=== PATIENT | female | born 1975 | race American Indian/Alaskan Native ===

== ENCOUNTER 2020-09-10 13:54 | Emergency (ER) | payer SELFPAY ==
[2020-09-10] MEDS ORDERED: ALBUTEROL 2.5 MG/3 ML NEBU IH ONE (14:29)
[2020-09-10] MEDS ORDERED: IPRATROPIUM 0.02% NEBU 2.5 ML IH ONE (14:29)
--- NOTE | 2020-09-10 14:33 | Emergency Department Report ---
ED Asthma HPI - General Chief Complaint: Adult Asthma Stated Complaint: KATIE Time Seen by Provider: 09/10/20 14:23 Source: patient, EMS Mode of arrival: Stretcher Limitations: No Limitations - History of Present Illness Initial Comments: Patient is 45 years old female with history of asthma. Patient presented to the ER via EMS from home for evaluation of shortness of breath, difficulty in breathing and wheezing for the last 3 days getting worse today. Patient stated that she ran out of her albuterol inhaler. Patient denied any fever or chills. No chest pain. MD Complaint: "asthma attack", shortness of breath, wheezing -: days(s) (3) Associated Symptoms: productive cough Treatments Prior to Arrival: inhaled bronchodilator, IV steroid - Related Data Current Asthma Therapy: inhaled bronchodilator Previous Rx's Medication Instructions Recorded Last Taken Type Albuterol Mdi (or & Nicu Only) 2 puff IH QID PRN #1 inhalation 09/10/20 Unknown Rx [ProAir HFA Inhaler] Prednisone [predniSONE 10 mg 10 mg PO .TAPER #1 tab.ds.pk 09/10/20 Unknown Rx (6-Day Pack, 21 Tabs)] guaiFENesin/CODEINE [Robitussin AC] 10 ml PO TID PRN #100 ml 09/10/20 Unknown Rx Allergies Allergy/AdvReac Type Severity Reaction Status Date / Time No Known Allergies Allergy Unverified 09/10/20 16:20 ED Review of Systems ROS: Stated complaint: KATIE Other details as noted in HPI Comment: All other systems reviewed and negative Constitutional: denies: chills, fever Respiratory: cough, shortness of breath, SOB with exertion, SOB at rest, wheezing Cardiovascular: dyspnea on exertion. denies: chest pain, palpitations Gastrointestinal: abdominal pain. denies: nausea, vomiting, diarrhea, constipation, hematemesis, melena, hematochezia Musculoskeletal: denies: back pain ED Past Medical Hx - Past Medical History Previous Medical History?: Yes Hx Psychiatric Treatment: Yes (Depression, anxiety) Hx Asthma: Yes Additional medical history: Insomnia - Surgical History Past Surgical History?: No - Social History Smoking Status: Current Every Day Smoker Substance Use Type: None - Medications Home Medications: Home Medications Medication Instructions Recorded Confirmed Last Taken Type Albuterol Mdi (or & Nicu Only) 2 puff IH QID PRN #1 inhalation 09/10/20 Unknown Rx [ProAir HFA Inhaler] Prednisone [predniSONE 10 mg 10 mg PO .TAPER #1 tab.ds.pk 09/10/20 Unknown Rx (6-Day Pack, 21 Tabs)] guaiFENesin/CODEINE [Robitussin AC] 10 ml PO TID PRN #100 ml 09/10/20 Unknown Rx ED Physical Exam - General Limitations: No Limitations General appearance: alert, in distress - Eye Eye exam: Present: normal appearance - ENT ENT exam: Present: normal exam, normal orophraynx, mucous membranes moist - Neck Neck exam: Present: normal inspection, full ROM. Absent: tenderness, meningismus - Respiratory Respiratory exam: Present: normal lung sounds bilaterally, respiratory distress, wheezes, rhonchi. Absent: accessory muscle use - Cardiovascular Cardiovascular Exam: Present: regular rate, normal rhythm, normal heart sounds - GI/Abdominal GI/Abdominal exam: Present: soft, normal bowel sounds. Absent: distended, tenderness, guarding, rebound, rigid, organomegaly, mass, bruit, pulsatile mass, hernia - Extremities Exam Extremities exam: Present: normal inspection, full ROM, normal capillary refill - Neurological Exam Neurological exam: Present: alert, oriented X3, CN II-XII intact, normal gait, reflexes normal - Psychiatric Psychiatric exam: Present: normal mood - Skin Skin exam: Present: warm, intact, normal color ED Course Vital Signs 09/10/20 09/10/20 14:07 15:44 Pulse Rate 112 H Pulse Rate [ 112 H Anterior Bilateral Throughout] Respiratory 16 Rate Respiratory 26 H Rate [Anterior Bilateral Throughout] Blood Pressure 119/76 O2 Sat by Pulse 98 Oximetry ED Medical Decision Making - Lab Data Result diagrams: 09/10/20 14:51 09/10/20 14:51 - Radiology Data Radiology results: report reviewed - Medical Decision Making Patient is 45 years old female with history of asthma. Patient presented to the ER via EMS from home for evaluation of shortness of breath, difficulty in breathing and wheezing for the last 3 days getting worse today. Patient stated that she ran out of her albuterol inhaler. Patient denied any fever or chills. No chest pain. Patient received albuterol, Solu-Medrol and magnesium sulfate by EMS. Upon arrival to the ER patient still wheezing and tachypneic patient received another 5 mg of albuterol and 1.5 mg of Atrovent. Patient stated that she is feeling much better. Labs reviewed and is unremarkable chest x-ray is negative for acute finding. Patient advised to follow-up with her primary doctor in the next 2 to 3 days and to return to the ER if she develop any new symptoms. Critical care attestation.: If time is entered above; I have spent that time in minutes in the direct care of this critically ill patient, excluding procedure time. ED Disposition Clinical Impression: Asthma exacerbation Disposition: - TO HOME OR SELFCARE Is pt being admited?: No Condition: Stable Instructions: Asthma (ED) Prescriptions: Prednisone [predniSONE 10 mg (6-Day Pack, 21 Tabs)] 10 mg PO .TAPER #1 tab.ds.pk Albuterol Mdi (or & Nicu Only) [ProAir HFA Inhaler] 2 puff IH QID PRN #1 inhalation PRN Reason: Shortness Of Breath guaiFENesin/CODEINE [Robitussin AC] 10 ml PO TID PRN #100 ml PRN Reason: Cough Referrals: PRIMARY CARE, [Primary Care Provider] - 3-5 Days
--- NOTE | 2020-09-10 15:12 | XRay Report ---
CHEST 1 VIEW INDICATION / CLINICAL INFORMATION: Shortness of breath. COMPARISON: None available. FINDINGS: SUPPORT DEVICES: None. HEART / MEDIASTINUM: No significant abnormality. LUNGS / PLEURA: No significant pulmonary or pleural abnormality. No pneumothorax. ADDITIONAL FINDINGS: No significant additional findings. IMPRESSION: No acute pulmonary or pleural abnormality Signer Name: Sunil Her MD FACR Signed: 09/10/2020 3:07 PM Workstation Name: [id number]
[2020-09-10 15:33] LABS: Blood Urea Nitrogen 7 mg/dL (7-17); Calcium 9.5 mg/dL (8.4-10.2); Hemolysis Index 11
[2020-09-10 15:37] LABS: Basophils # (Auto) 0.1 K/mm3 (0.0-0.1); Basophils % (Auto) 0.6 % (0.0-1.8); Eosinophils # (Auto) 0.2 K/mm3 (0.0-0.4); Eosinophils % (Auto) 2.4 % (0.0-4.3); Hematocrit 38.4 % (30.3-42.9); Hemoglobin 12.8 gm/dl (10.1-14.3); Lymphocytes # (Auto) 0.9 K/mm3 (1.2-5.4); Lymphocytes % (Auto) 11.2 % (13.4-35.0); Mean Corpuscular HGB Conc 34 % (30-34); Mean Corpuscular Volume 97 fl (79-97); Monocytes # (Auto) 0.5 K/mm3 (0.0-0.8); Monocytes % (Auto) 6.5 % (0.0-7.3); Platelet Count 456 K/mm3 (140-440); Red Blood Count 3.96 M/mm3 (3.65-5.03); Red Cell Distribution Width 14.7 % (13.2-15.2)
[2020-09-10 15:39] LABS: BUN/Creatinine Ratio 14
[2020-09-10] MEDS ORDERED: guaiFENesin 100 MG/5 ML ORAL LIQD PO ONE (16:20)
[2020-09-10 16:53] VITALS: BP 122/75
== END 2020-09-10 16:50 | disposition home or self-care (01) ==
LOC: ED 13:54
DX: J45.901 Unspecified asthma with (acute) exacerbation (principal); F32.9 Major depressive disorder, single episode, unspecified; F41.9 Anxiety disorder, unspecified; F17.200 Nicotine dependence, unspecified, uncomplicated; Z79.899 Other long term (current) drug therapy
CPT/HCPCS: 36415; 71045; 80048; 85025; 94640; 94644

== ENCOUNTER 2020-09-23 07:16 | Emergency (ER) | payer SELFPAY ==
[2020-09-23] MEDS ORDERED: IPRATROPIUM 0.02% NEBU 2.5 ML IH ONE (07:35)
[2020-09-23] MEDS ORDERED: MAGNESIUM SULFATE 2 GM/50 ML BAG IV ONE (07:35)
[2020-09-23] MEDS ORDERED: ALBUTEROL 2.5 MG/3 ML NEBU IH ONE (07:35)
[2020-09-23] MEDS ORDERED: SODIUM CHLORIDE 0.9% 1000 ML 1,000 ML IV ONE (07:36)
--- NOTE | 2020-09-23 07:38 | Emergency Department Report ---
HPI - General Chief Complaint: Adult Asthma Time Seen by Provider: 09/23/20 07:29 - HPI HPI: This is a 45-year-old female presents to the emergency department via EMS from home with complaint of "I think my asthma is acting up." She has been having some wheezing, shortness of breath and a dry cough since last night around 8 PM, but the patient says it has worsened since around midnight. She has been using her albuterol inhaler and nebulizer treatments without much relief. Patient also received 125 mg of Solu-Medrol and 5 mg of albuterol in route with EMS. She denies any fever, chest pain, back pain, edema, nausea, vomiting or diaphoresis. She is a tobacco smoker but denies any illicit drug use. No recent travel or sick contacts at home. Patient symptoms worsen with any exertion. No known alleviating factors. Despite her history of asthma, the patient says that she has never been admitted or intubated previously for her asthma. ED Past Medical Hx - Past Medical History Hx Psychiatric Treatment: Yes (Depression, anxiety) Hx Asthma: Yes Additional medical history: Insomnia - Social History Smoking Status: Current Every Day Smoker Substance Use Type: None - Medications Home Medications: Home Medications Medication Instructions Recorded Confirmed Last Taken Type guaiFENesin/CODEINE [Robitussin AC] 10 ml PO TID PRN #100 ml 09/10/20 Unknown Rx ALBUTEROL NEB's [Proventil 0.083% 2.5 mg IH TID PRN #30 nebu 09/23/20 Unknown Rx NEBS] Albuterol Mdi (or & Nicu Only) 2 puff IH QID PRN #1 inhalation 09/23/20 Unknown Rx [ProAir HFA Inhaler] Benzonatate [Tessalon Perles] 100 mg PO Q8HR PRN #20 capsule 09/23/20 Unknown Rx Prednisone [predniSONE 10 mg 10 mg PO .TAPER #1 tab.ds.pk 09/23/20 Unknown Rx (6-Day Pack, 21 Tabs)] ED Review of Systems ROS: Stated complaint: KATIE Other details as noted in HPI Comment: All other systems reviewed and negative Constitutional: denies: chills, fever Eyes: denies: eye pain, vision change ENT: denies: ear pain, throat pain Respiratory: cough, shortness of breath, wheezing Cardiovascular: denies: chest pain, edema Gastrointestinal: denies: abdominal pain, vomiting Genitourinary: denies: dysuria, discharge Musculoskeletal: denies: back pain, arthralgia Skin: denies: rash, lesions Neurological: denies: headache, weakness Physical Exam - Physical Exam Vital Signs: Vital Signs 09/23/20 07:22 Temperature 97.7 F Pulse Rate 136 H Respiratory 36 H Rate Blood Pressure 110/70 [Left] O2 Sat by Pulse 93 Oximetry Physical Exam: GENERAL: The patient is well-developed well-nourished. HENT: Normocephalic. Atraumatic. Patient has moist mucous membranes. EYES: Extraocular motions are intact. NECK: Supple. Trachea is midline. CHEST/LUNGS: Moderate wheezing throughout the chest. There is some tachypnea and accessory muscle use. There is some respiratory distress noted. HEART/CARDIOVASCULAR: Regular. There is moderate tachycardia. There is no murmur. ABDOMEN: Abdomen is soft, nontender. Patient has normal bowel sounds. SKIN: Skin is warm and dry. NEURO: The patient is awake, alert, and oriented. The patient is cooperative. MUSCULOSKELETAL: There is no tenderness or deformity. There is no limitation range of motion. ED Course Vital Signs 09/23/20 07:22 Temperature 97.7 F Pulse Rate 136 H Respiratory 36 H Rate Blood Pressure 110/70 [Left] O2 Sat by Pulse 93 Oximetry - Reevaluation(s) Reevaluation #1: 09/23/20 14:03 Lab Results 09/23/20 09/23/20 09/23/20 Range/Units 07:50 07:50 07:50 WBC 5.9 (4.5-11.0) K/mm3 RBC 3.85 (3.65-5.03) M/mm3 Hgb 11.9 (10.1-14.3) gm/dl Hct 35.2 (30.3-42.9) % MCV 91 (79-97) fl MCH 31 (28-32) pg MCHC 34 (30-34) % RDW 14.4 (13.2-15.2) % Plt Count 500 H (140-440) K/mm3 Add Manual Diff Complete Total Counted 100 Seg Neuts % (Manual) 57.0 (40.0-70.0) % Band Neutrophils % 2.0 % Lymphocytes % (Manual) 21 (13.4-35.0) % Reactive Lymphs % (Man) 1.0 % Monocytes % (Manual) 10.0 H (0.0-7.3) % Eosinophils % (Manual) 9 H (0.0-4.3) % Basophils % (Manual) 0 (0.0-1.8) % Metamyelocytes % 0 % Myelocytes % 0 % Promyelocytes % 0 % Blast Cells % 0 % Nucleated RBC % Not Reportable Seg Neutrophils # Man 3.4 (1.8-7.7) K/mm3 Band Neutrophils # 0.1 K/mm3 Lymphocytes # (Manual) 1.2 (1.2-5.4) K/mm3 Abs React Lymphs (Man) 0.1 K/mm3 Monocytes # (Manual) 0.6 (0.0-0.8) K/mm3 Eosinophils # (Manual) 0.5 H (0.0-0.4) K/mm3 Basophils # (Manual) 0.0 (0.0-0.1) K/mm3 Metamyelocytes # 0.0 K/mm3 Myelocytes # 0.0 K/mm3 Promyelocytes # 0.0 K/mm3 Blast Cells # 0.0 K/mm3 WBC Morphology Not Reportable Hypersegmented Neuts Not Reportable Hyposegmented Neuts Not Reportable Hypogranular Neuts Not Reportable Smudge Cells Not Reportable Toxic Granulation Not Reportable Toxic Vacuolation Not Reportable Dohle Bodies Not Reportable Pelger-Huet Anomaly Not Reportable Hallie Rods Not Reportable Platelet Estimate Not Reportable Clumped Platelets Not Reportable Plt Clumps, EDTA Not Reportable Large Platelets Not Reportable Giant Platelets Not Reportable Platelet Satelliting Not Reportable Plt Morphology Comment Not Reportable RBC Morphology Normal Dimorphic RBCs Not Reportable Polychromasia Not Reportable Hypochromasia Not Reportable Poikilocytosis Not Reportable Anisocytosis Not Reportable Microcytosis Not Reportable Macrocytosis Not Reportable Spherocytes Not Reportable Pappenheimer Bodies Not Reportable Sickle Cells Not Reportable Target Cells Not Reportable Tear Drop Cells Not Reportable Ovalocytes Not Reportable Helmet Cells Not Reportable Peña-[place] Bodies Not Reportable [place] Rings Not Reportable Citra Cells Not Reportable Bite Cells Not Reportable Crenated Cell Not Reportable Elliptocytes Not Reportable Acanthocytes (Spur) Not Reportable Rouleaux Not Reportable Hemoglobin C Crystals Not Reportable Schistocytes Not Reportable Malaria parasites Not Reportable Romeo Bodies Not Reportable Hem Pathologist Commnt No D-Dimer < 135 (0-234) ng/mlDDU Sodium 137 (137-145) mmol/L Potassium 4.2 (3.6-5.0) mmol/L Chloride 101.8 (98-107) mmol/L Carbon Dioxide 25 (22-30) mmol/L Anion Gap 14 mmol/L BUN 7 (7-17) mg/dL Creatinine 0.6 (0.6-1.2) mg/dL Estimated GFR > 60 ml/min BUN/Creatinine Ratio 12 % Glucose 109 H (65-100) mg/dL Calcium 8.9 (8.4-10.2) mg/dL Troponin T (0.00-0.029) ng/mL 09/23/20 09/23/20 Range/Units 07:50 07:50 WBC (4.5-11.0) K/mm3 RBC (3.65-5.03) M/mm3 Hgb (10.1-14.3) gm/dl Hct (30.3-42.9) % MCV (79-97) fl MCH (28-32) pg MCHC (30-34) % RDW (13.2-15.2) % Plt Count (140-440) K/mm3 Add Manual Diff Total Counted Seg Neuts % (Manual) (40.0-70.0) % Band Neutrophils % % Lymphocytes % (Manual) (13.4-35.0) % Reactive Lymphs % (Man) % Monocytes % (Manual) (0.0-7.3) % Eosinophils % (Manual) (0.0-4.3) % Basophils % (Manual) (0.0-1.8) % Metamyelocytes % % Myelocytes % % Promyelocytes % % Blast Cells % % Nucleated RBC % Seg Neutrophils # Man (1.8-7.7) K/mm3 Band Neutrophils # K/mm3 Lymphocytes # (Manual) (1.2-5.4) K/mm3 Abs React Lymphs (Man) K/mm3 Monocytes # (Manual) (0.0-0.8) K/mm3 Eosinophils # (Manual) (0.0-0.4) K/mm3 Basophils # (Manual) (0.0-0.1) K/mm3 Metamyelocytes # K/mm3 Myelocytes # K/mm3 Promyelocytes # K/mm3 Blast Cells # K/mm3 WBC Morphology TNR Hypersegmented Neuts Hyposegmented Neuts Hypogranular Neuts Smudge Cells Toxic Granulation Toxic Vacuolation Dohle Bodies Pelger-Huet Anomaly Hallie Rods Platelet Estimate Clumped Platelets Plt Clumps, EDTA Large Platelets Giant Platelets Platelet Satelliting Plt Morphology Comment RBC Morphology Dimorphic RBCs Polychromasia Hypochromasia Poikilocytosis Anisocytosis Microcytosis Macrocytosis Spherocytes Pappenheimer Bodies Sickle Cells Target Cells Tear Drop Cells Ovalocytes Helmet Cells Peña-Captree Bodies [place] Rings Jolly Cells Bite Cells Crenated Cell Elliptocytes Acanthocytes (Spur) Rouleaux Hemoglobin C Crystals Schistocytes Malaria parasites Romeo Bodies Hem Pathologist Commnt D-Dimer (0-234) ng/mlDDU Sodium (137-145) mmol/L Potassium (3.6-5.0) mmol/L Chloride (98-107) mmol/L Carbon Dioxide (22-30) mmol/L Anion Gap mmol/L BUN (7-17) mg/dL Creatinine (0.6-1.2) mg/dL Estimated GFR ml/min BUN/Creatinine Ratio % Glucose (65-100) mg/dL Calcium (8.4-10.2) mg/dL Troponin T < 0.010 (0.00-0.029) ng/mL ED Medical Decision Making - Lab Data Result diagrams: 09/23/20 07:50 09/23/20 07:50 - EKG Data -: EKG Interpreted by Nh EKG shows normal: sinus rhythm, axis, intervals, QRS complexes, ST-T waves Rate: tachycardia (114 bpm) - EKG Data When compared to previous EKG there are: no significant change Interpretation: normal EKG (With tachycardia at 114 bpm) - Radiology Data Radiology results: image reviewed interpreted by me: Chest x-ray does not show any acute process. There are no pleural effusions, obvious pneumonia and there is no pneumothorax. No significant cardiomegaly. - Medical Decision Making This patient presents with shortness of breath, wheezing, dry cough since last night that appears consistent with her asthma. Chest x-ray did not show any pneumonia, pleural effusions, pneumothorax, or any other acute process. She was given Solu-Medrol and 5 mg of albuterol in route with EMS. Here she was given IV magnesium and a prolonged breathing treatment with both albuterol and Atrovent. Labs have been unremarkable including CBC, metabolic panel, negative troponin and a negative D-dimer. Patient presented with some tachycardia, but otherwise the vital signs have been reassuring including being afebrile. The tachycardia improved and may also be secondary to the beta agonists being used. She was reevaluated multiple times over multiple hours and the bronchospasm has also greatly improved. The patient is no longer having any significant tachypnea, no accessory muscle use, and does not appear in any respiratory distress. She will be discharged home to follow-up with primary care and has been given prescriptions for a refill of her albuterol inhaler and nebulizer treatment, a course of steroids, and Tessalon Perles for her cough. She will return to the emergency department with any worsening of her symptoms or with any acute distress. Critical Care Time: No Critical care attestation.: If time is entered above; I have spent that time in minutes in the direct care of this critically ill patient, excluding procedure time. ED Disposition Clinical Impression: Tobacco use disorder Asthma exacerbation Qualifiers: Asthma severity: unspecified severity Asthma persistence: unspecified Qualified Code(s): J45.901 - Unspecified asthma with (acute) exacerbation Disposition: DC-01 TO HOME OR SELFCARE Is pt being admited?: No Condition: Stable Instructions: Asthma (ED), How to Stop Smoking (ED) Additional Instructions: Please follow-up with a primary care physician in the next few days. Please quit smoking. Take the medications as prescribed. Return to the emergency department with any worsening of your symptoms, new or concerning symptoms not addressed during this current emergency department visit, or with any acute distress. Prescriptions: Prednisone [predniSONE 10 mg (6-Day Pack, 21 Tabs)] 10 mg PO .TAPER #1 tab.ds.pk Albuterol Mdi (or & Nicu Only) [ProAir HFA Inhaler] 2 puff IH QID PRN #1 inhalation PRN Reason: Shortness Of Breath ALBUTEROL NEB's [Proventil 0.083% NEBS] 2.5 mg IH TID PRN #30 nebu PRN Reason: Wheezing Benzonatate [Tessalon Perles] 100 mg PO Q8HR PRN #20 capsule PRN Reason: Cough Referrals: PRIMARY CAREMD [Primary Care Provider] - 2-3 Days [facility] [Provider Group] - 2-3 Days JEANETTE GREER MD [Staff Physician] - 2-3 Days Time of Disposition: 10:33
--- NOTE | 2020-09-23 08:04 | XRay Report ---
CHEST 1 VIEW INDICATION / CLINICAL INFORMATION: SOB. COMPARISON: 09/10/2020 FINDINGS: SUPPORT DEVICES: None. HEART / MEDIASTINUM: Stable. LUNGS / PLEURA: No significant pulmonary or pleural abnormality. No pneumothorax. ADDITIONAL FINDINGS: No significant additional findings. IMPRESSION: 1. No acute findings or significant interval change when compared to the recent prior radiograph. Signer Name: Peterson Singh MD Signed: 09/23/2020 8:00 AM Workstation Name: [id number]
[2020-09-23 08:08] LABS: Hematocrit 35.2 % (30.3-42.9); Hemoglobin 11.9 gm/dl (10.1-14.3); Mean Corpuscular HGB Conc 34 % (30-34); Mean Corpuscular Volume 91 fl (79-97); Platelet Count 500 K/mm3 (140-440); Red Blood Count 3.85 M/mm3 (3.65-5.03); Red Cell Distribution Width 14.4 % (13.2-15.2)
[2020-09-23 08:10] LABS: Blood Urea Nitrogen 7 mg/dL (7-17); Calcium 8.9 mg/dL (8.4-10.2); Hemolysis Index 3
[2020-09-23 08:12] LABS: BUN/Creatinine Ratio 12
[2020-09-23 09:17] LABS: Band Neutrophils # (Manual) 0.1 K/mm3; Basophils % (Manual) 0 % (0.0-1.8); Eosinophils % (Manual) 9 % (0.0-4.3); Total Cells Counted 100
[2020-09-23 09:18] LABS: RBC Morphology Normal
[2020-09-23 11:53] VITALS: BP 118/66
== END 2020-09-23 11:00 | disposition home or self-care (01) ==
LOC: ED 07:16
DX: J45.901 Unspecified asthma with (acute) exacerbation (principal); F32.9 Major depressive disorder, single episode, unspecified; F41.9 Anxiety disorder, unspecified; F17.200 Nicotine dependence, unspecified, uncomplicated; Z79.899 Other long term (current) drug therapy
CPT/HCPCS: 36415; 71045; 80048; 84484; 85007; 85025; 85379; 93005; 94640; 96365; 99285; J3475; J7030; 94644

== ENCOUNTER 2020-10-08 11:16 | Emergency (ER) | payer SELFPAY ==
[2020-10-08] MEDS ORDERED: ALBUTEROL 2.5 MG/3 ML NEBU IH ONE ×2 (11:37→14:09)
[2020-10-08] MEDS ORDERED: IPRATROPIUM 0.02% NEBU 2.5 ML IH ONE (11:38)
[2020-10-08] MEDS ORDERED: KETOROLAC 30 MG/1 ML INJ IV ONE (11:40)
--- NOTE | 2020-10-08 11:40 | Emergency Department Report ---
ED Asthma HPI - General Chief Complaint: Adult Asthma Stated Complaint: ASTHMA ATTACK Time Seen by Provider: 10/08/20 11:29 Source: EMS Mode of arrival: Stretcher Limitations: No Limitations - History of Present Illness Initial Comments: 45-year-old female with a past medical history of asthma, depression, anxiety, insomnia presents to the hospital planing of acute exacerbation worsening today. Patient received albuterol 10 mg, magnesium 2 g, Solu-Medrol 125 mg in route to the hospital. Patient presents to the hospital with tachypnea, breathlessness, accessory muscle use, and wheezing with nebulized treatment in progress. Patient complains of cough productive of clear sputum only with asthma exacerbation. She denies fever, chest pain, loss of sense of taste or smell, calf tenderness, or leg edema. Patient does complain of mild headache with coughing. Patient has had recent frequent visits here including September 10 and September 23 for the acute asthma exacerbation. During these visits patient had 2 normal chest x-rays, unremarkable labs including a negative D-dimer. Patient states her symptoms improve after ED treatment and then after completing steroid taper. Her follow-up appointment scheduled for October 14 with PMD. She denies history of intubation or hospitalization secondary to asthma. She states she quit smoking 2 weeks ago and thinks the change in weather may be exacerbating her asthma. - Related Data Previous Rx's Medication Instructions Recorded Last Taken Type guaiFENesin/CODEINE [Robitussin AC] 10 ml PO TID PRN #100 ml 09/10/20 Unknown Rx Albuterol Mdi (or & Nicu Only) 2 puff IH QID PRN #1 inhalation 09/23/20 Unknown Rx [ProAir HFA Inhaler] Benzonatate [Tessalon Perles] 100 mg PO Q8HR PRN #20 capsule 09/23/20 Unknown Rx ALBUTEROL NEB's [Proventil 0.083% 2.5 mg IH TID PRN #30 nebu 10/08/20 Unknown Rx NEBS] Fluticasone/Salmeterol [Advair 1 puff IH BID #1 disk.w.dev 10/08/20 Unknown Rx Diskus 500-50 mcg] Prednisone [predniSONE 10 mg 10 mg PO .TAPER #1 tab.ds.pk 10/08/20 Unknown Rx (6-Day Pack, 21 Tabs)] Allergies Allergy/AdvReac Type Severity Reaction Status Date / Time No Known Allergies Allergy Unverified 10/08/20 11:29 ED Review of Systems ROS: Stated complaint: ASTHMA ATTACK Other details as noted in HPI Comment: All other systems reviewed and negative ED Past Medical Hx - Past Medical History Previous Medical History?: Yes Hx Psychiatric Treatment: Yes (Depression, anxiety) Hx Asthma: Yes Additional medical history: Insomnia - Social History Smoking Status: Current Every Day Smoker Substance Use Type: None - Medications Home Medications: Home Medications Medication Instructions Recorded Confirmed Last Taken Type guaiFENesin/CODEINE [Robitussin AC] 10 ml PO TID PRN #100 ml 09/10/20 Unknown Rx Albuterol Mdi (or & Nicu Only) 2 puff IH QID PRN #1 inhalation 09/23/20 Unknown Rx [ProAir HFA Inhaler] Benzonatate [Tessalon Perles] 100 mg PO Q8HR PRN #20 capsule 09/23/20 Unknown Rx ALBUTEROL NEB's [Proventil 0.083% 2.5 mg IH TID PRN #30 nebu 10/08/20 Unknown Rx NEBS] Fluticasone/Salmeterol [Advair 1 puff IH BID #1 disk.w.dev 10/08/20 Unknown Rx Diskus 500-50 mcg] Prednisone [predniSONE 10 mg 10 mg PO .TAPER #1 tab.ds.pk 10/08/20 Unknown Rx (6-Day Pack, 21 Tabs)] ED Physical Exam - General Limitations: No Limitations - Other Other exam information: General: Mild respiratory distress Head: Atraumatic Eyes: normal appearance ENT: Moist mucous membranes Neck: Normal appearance, no midline tenderness Chest: Bilateral wheezing, fair air movement, mild accessory muscle use, breathlessness, tachypnea CV: Regular rate and rhythm Abdomen: Soft, normal bowel sounds, nontender, nondistended, no rebound or guarding Back: Normal inspection Extremity: Normal inspection, full range of motion, no calf tenderness or leg edema Neuro: Alert O x 3, no facial asymmetry, speech clear, no gross motor sensory deficit Psych: Appropriate behavior Skin: No rash ED Course Vital Signs 10/08/20 10/08/20 10/08/20 11:49 11:50 11:56 Temperature Pulse Rate Pulse Rate [ 115 H Anterior Throughout] Respiratory 18 18 Rate Respiratory 20 Rate [Anterior Throughout] Blood Pressure Blood Pressure [Right] O2 Sat by Pulse 98 Oximetry 10/08/20 10/08/20 10/08/20 12:04 12:15 15:21 Temperature Pulse Rate 116 H 116 H 112 H Pulse Rate [ Anterior Throughout] Respiratory 30 H 26 H 18 Rate Respiratory Rate [Anterior Throughout] Blood Pressure 108/63 Blood Pressure 120/77 [Right] O2 Sat by Pulse 97 92 100 Oximetry 10/08/20 16:41 Temperature 97.6 F Pulse Rate Pulse Rate [ Anterior Throughout] Respiratory Rate Respiratory Rate [Anterior Throughout] Blood Pressure Blood Pressure [Right] O2 Sat by Pulse Oximetry - Consultations Consultation #1: 10/08/20 11:53 Case discussed with car refinisher on-call Dr. Solitario regarding additional options for outpatient management of asthma with frequent exacerbations requiring ED treatment. He says yes Advair 500/50 mcg 1 puff twice daily however, states that it may be expensive if patient does not have insurance and unfortunately there are no cheaper offer alternatives for inhaled steroids. He recommends follow-up in the office after discharge. ED Medical Decision Making - Radiology Data Radiology results: report reviewed XR chest 1V ap INDICATION / CLINICAL INFORMATION: sob, cough, asthma COMPARISON: September 23 2020 FINDINGS: SUPPORT DEVICES: None. HEART / MEDIASTINUM: No significant abnormality. LUNGS / PLEURA: Lungs are clear. Costophrenic sulci are sharp. No pneumothorax. ADDITIONAL FINDINGS: No significant additional findings. IMPRESSION: 1. No acute findings. - Medical Decision Making Patient received Solu-Medrol, magnesium, and albuterol prior to arrival to the ED for acute asthma exacerbation. Patient had repeated nebs in the ED with continued improvement. Persist tachycardia likely secondary to bronchodilators. Pain does not endorse pleuritic chest pain, DVT symptoms, and does not have hypoxia. Tachypnea improved with bronchodilators. Patient tolerated ambulation without dyspnea or desaturation. Patient will be placed on Advair as recommended by car refinisher. Patient actually has a follow-up visit in the next 10 days with a car refinisher and primary care doctor Critical Care Time: No Critical care attestation.: If time is entered above; I have spent that time in minutes in the direct care of this critically ill patient, excluding procedure time. ED Disposition Clinical Impression: Acute asthma exacerbation Disposition: DC-01 TO HOME OR SELFCARE Is pt being admited?: No Does the pt Need Aspirin: No Condition: Stable Instructions: Asthma, Adult Additional Instructions: Take the medication as prescribed. Follow-up with your doctor or doctor/clinic provided. Return if symptoms worsen as indicated by your discharge instructions. Prescriptions: Fluticasone/Salmeterol [Advair Diskus 500-50 mcg] 1 puff IH BID #1 disk.w.dev Prednisone [predniSONE 10 mg (6-Day Pack, 21 Tabs)] 10 mg PO .TAPER #1 tab.ds.pk ALBUTEROL NEB's [Proventil 0.083% NEBS] 2.5 mg IH TID PRN #30 nebu PRN Reason: Wheezing Referrals: PRIMARY CARE, [Primary Care Provider] - 7-10 days your, car refinisher [Other] - 7-10 days (as scheduled ) Time of Disposition: 16:42
--- NOTE | 2020-10-08 12:33 | XRay Report ---
XR chest 1V ap INDICATION / CLINICAL INFORMATION: sob, cough, asthma COMPARISON: September 23 2020 FINDINGS: SUPPORT DEVICES: None. HEART / MEDIASTINUM: No significant abnormality. LUNGS / PLEURA: Lungs are clear. Costophrenic sulci are sharp. No pneumothorax. ADDITIONAL FINDINGS: No significant additional findings. IMPRESSION: 1. No acute findings. Signer Name: Graham Sepulveda MD Signed: 10/08/2020 12:28 PM Workstation Name: [id number]
[2020-10-08 15:22] VITALS: BP 120/77
== END 2020-10-08 17:28 | disposition home or self-care (01) ==
LOC: ED 11:16
DX: J45.901 Unspecified asthma with (acute) exacerbation (principal); F41.9 Anxiety disorder, unspecified; F32.89 Other specified depressive episodes; G47.09 Other insomnia; Z79.899 Other long term (current) drug therapy
CPT/HCPCS: 71045; 94644; 96374; 99284; J1885

== ENCOUNTER 2020-11-28 17:50 | Emergency (ER) | payer SELFPAY ==
[2020-11-28] MEDS ORDERED: methylPREDNISolone Sod Succinate 125 MG/2 ML INJ IV ONE ×2 (18:56→22:28)
[2020-11-28] MEDS ORDERED: ALBUTEROL 2.5 MG/3 ML NEBU IH ONE ×3 (18:56→22:28)
[2020-11-28] MEDS ORDERED: IPRATROPIUM 0.02% NEBU 2.5 ML IH ONE ×3 (18:56→22:28)
--- NOTE | 2020-11-28 18:58 | Event Note ---
ED Screening Note Date of service: 11/28/20 Time: 18:57 ED Screening Note: Complaints of asthma exacerbation starting last night Albuterol and nebulizer not working per patient Patient chest is retracting in triage This initial assessment/diagnostic orders/clinical plan/treatment(s) is/are sub ject to change based on patients health status, clinical progression and re- assessment by fellow clinical providers in the ED. Further treatment and workup at subsequent clinical providers discretion. Patient/guardian urged not to elope from the ED as their condition may be serious if not clinically assessed and managed. Initial orders include: Continuous DuoNeb Solu-Medrol Chest x-ray
--- NOTE | 2020-11-28 20:08 | XRay Report ---
CHEST 2 VIEWS INDICATION: MAIN. Acute shortness of breath since last evening, asthmatic COMPARISON: Chest x-ray from 10/08/2020 FINDINGS: SUPPORT DEVICES: None. HEART: Within normal limits. LUNGS/PLEURA: Mild bilateral central peribronchial thickening could be seen with history of asthma. N o consolidation or effusion. No pneumothorax. ADDITIONAL FINDINGS: None. IMPRESSION: 1. Pulmonary findings as above. Signer Name: Sami Apple MD Signed: 11/28/2020 8:03 PM Workstation Name: [id number]
[2020-11-28] MEDS ORDERED: MAGNESIUM SULFATE 2 GM/50 ML BAG IV ONE (21:41)
[2020-11-28] MEDS ORDERED: SODIUM CHLORIDE 0.9% 500 ML 500 ML IV ONE (21:41)
[2020-11-28] MEDS ORDERED: EPINEPHrine/PF 1 MG/1 ML INJ SUB-Q ONE (21:41)
--- NOTE | 2020-11-28 21:46 | Emergency Department Report ---
<LAURELBHASKAR TEJEDA - Last Filed: 11/29/20 01:27> ED Asthma HPI - General Chief Complaint: Adult Asthma Stated Complaint: ASTHAM/SHORTNESS OF BREATH PUI?: No Time Seen by Provider: 11/28/20 18:56 Source: patient Mode of arrival: Ambulatory Limitations: No Limitations - History of Present Illness Initial Comments: The patient was evaluated in the emergency department for symptoms described in the history of present illness. He/she was evaluated in the context of the global COVID-19 pandemic, which necessitated consideration that the patient might be at risk for infection with the virus that causes COVID-19. Institutional protocols and algorithms that pertain to the evaluation of patients at risk for COVID-19 are in a state of rapid change based on information released by regulatory bodies including the CDC and federal and state organizations. These policies and algorithms were followed during the patient's care in the emergency department. Please note that these policies, procedures and recommendations changed on a rapid basis. Patient is a 45-year-old female. The patient has a history of asthma/reactive airway disease. She does not have a primary care doctor. She states that she is not and has not delivered giving in the past 6 weeks. She states that she was diagnosed with asthma 5 or 6 years ago. She does not believe she has been intubated. She presents to the ER today with complaints of painless wheezing, cough and shortness of breath. This feels similar to prior asthma exacerbations. She denies physical pain, fever, loss of taste, loss of smell. She denies travel, surgery, leg pain or leg swelling, and oral contraceptive use. She believes that triggers for today's attack include cold weather, change of seasons, and "local allergies." MD Complaint: "asthma attack", shortness of breath, wheezing -: hour(s) Asthma History: adult onset, history of prior ED visit Severity: moderate Context: allergen exposure Associated Symptoms: dry cough - Related Data Previous Rx's Medication Instructions Recorded Last Taken Type guaiFENesin/CODEINE [Robitussin AC] 10 ml PO TID PRN #100 ml 09/10/20 Unknown Rx Albuterol Mdi (or & Nicu Only) 2 puff IH QID PRN #1 inhalation 09/23/20 Unknown Rx [ProAir HFA Inhaler] Benzonatate [Tessalon Perles] 100 mg PO Q8HR PRN #20 capsule 09/23/20 Unknown Rx ALBUTEROL NEB's [Proventil 0.083% 2.5 mg IH TID PRN #30 nebu 10/08/20 Unknown Rx NEBS] Fluticasone/Salmeterol [Advair 1 puff IH BID #1 disk.w.dev 10/08/20 Unknown Rx Diskus 500-50 mcg] Prednisone [predniSONE 10 mg 10 mg PO .TAPER #1 tab.ds.pk 10/08/20 Unknown Rx (6-Day Pack, 21 Tabs)] Albuterol Sulfate [Proair 90 mcg IH Q4HR PRN #2 aer.pow.ba 11/29/20 Unknown Rx Respiclick] EPINEPHrine [Epipen 2-Benji] 0.3 mg IM DAILY PRN #2 ml 11/29/20 Unknown Rx Ipratropium (Nf) [Atrovent] 2 puff IH Q6HR PRN #1 inha 11/29/20 Unknown Rx predniSONE [Deltasone] 40 mg PO QDAY #8 tab 11/29/20 Unknown Rx Allergies Allergy/AdvReac Type Severity Reaction Status Date / Time No Known Allergies Allergy Unverified 10/08/20 11:29 ED Review of Systems Constitutional: denies: fever Eyes: denies: eye discharge ENT: congestion Respiratory: shortness of breath, SOB with exertion, SOB at rest, wheezing Cardiovascular: denies: chest pain Gastrointestinal: denies: abdominal pain Musculoskeletal: denies: back pain Neurological: weakness Psychiatric: anxiety Hematological/Lymphatic: denies: easy bleeding ED Past Medical Hx - Past Medical History Previous Medical History?: Yes Hx Psychiatric Treatment: Yes (Depression, anxiety) Hx Asthma: Yes Additional medical history: Insomnia - Social History Smoking Status: Never Smoker Substance Use Type: None - Medications Home Medications: Home Medications Medication Instructions Recorded Confirmed Last Taken Type guaiFENesin/CODEINE [Robitussin AC] 10 ml PO TID PRN #100 ml 09/10/20 Unknown Rx Albuterol Mdi (or & Nicu Only) 2 puff IH QID PRN #1 inhalation 09/23/20 Unknown Rx [ProAir HFA Inhaler] Benzonatate [Tessalon Perles] 100 mg PO Q8HR PRN #20 capsule 09/23/20 Unknown Rx ALBUTEROL NEB's [Proventil 0.083% 2.5 mg IH TID PRN #30 nebu 10/08/20 Unknown Rx NEBS] Fluticasone/Salmeterol [Advair 1 puff IH BID #1 disk.w.dev 10/08/20 Unknown Rx Diskus 500-50 mcg] Prednisone [predniSONE 10 mg 10 mg PO .TAPER #1 tab.ds.pk 10/08/20 Unknown Rx (6-Day Pack, 21 Tabs)] Albuterol Sulfate [Proair 90 mcg IH Q4HR PRN #2 aer.pow.ba 11/29/20 Unknown Rx Respiclick] EPINEPHrine [Epipen 2-Benji] 0.3 mg IM DAILY PRN #2 ml 11/29/20 Unknown Rx Ipratropium (Nf) [Atrovent] 2 puff IH Q6HR PRN #1 inha 11/29/20 Unknown Rx predniSONE [Deltasone] 40 mg PO QDAY #8 tab 11/29/20 Unknown Rx ED Physical Exam - General Limitations: No Limitations General appearance: alert, anxious, in distress, obese - Head Head exam: Present: atraumatic, normocephalic - Eye Eye exam: Present: normal appearance, EOMI. Absent: nystagmus - ENT ENT exam: Present: normal exam, normal orophraynx, mucous membranes moist, normal external ear exam - Neck Neck exam: Present: normal inspection, full ROM. Absent: tenderness, meningismus - Respiratory Respiratory exam: Present: respiratory distress, wheezes, rhonchi, accessory muscle use - Cardiovascular Cardiovascular Exam: Present: regular rate, normal rhythm, normal heart sounds. Absent: bradycardia, tachycardia, irregular rhythm, systolic murmur, diastolic murmur, rubs, gallop - GI/Abdominal GI/Abdominal exam: Present: soft. Absent: distended, tenderness, guarding, rebound, rigid, pulsatile mass - Extremities Exam Extremities exam: Present: normal inspection, full ROM, other (2+ pulses noted in the bilateral upper and lower extremities. There is no palpable cord. negative Homans sign. Muscular compartments are soft. The pelvis is stable.). Absent: pedal edema, calf tenderness - Back Exam Back exam: Present: normal inspection, full ROM. Absent: tenderness, CVA tenderness (R), CVA tenderness (L), paraspinal tenderness, vertebral tenderness - Neurological Exam Neurological exam: Present: alert, normal gait, other (No facial droop. Tongue midline. Extraocular movements intact bilaterally. Facial sensation intact to light touch in V1, V2, V3 distribution bilaterally. 5 and a 5 strength in 4 extremities. Sensation intact to light touch in 4 extremities.). Absent: motor sensory deficit - Psychiatric Psychiatric exam: Present: anxious - Skin Skin exam: Present: warm, dry, intact, normal color. Absent: rash ED Course - Reevaluation(s) Reevaluation #1: 11/28/20 21:45 Differential diagnosis, including but not limited to: Asthma exacerbation, reactive airways disease, bronchitis Assessment and plan: 45-year-old female, who is afebrile, with reassuring vital signs, with no pulmonary embolism or DVT risk factors, low risk by Wells criteria, PERC negative, presenting with cough, wheezing, shortness of breath, suspicious for asthma exacerbation. Patient has been seen for this at this hospital in the past. Place patient on threat monitoring analyst, administer albuterol, Atrovent, steroids, magnesium, IV fluids, subcutaneous epinephrine, and reassess. Patient denies Covid exposure. Have discussed this plan of care with the patient, who verbalized understanding and is amenable to this plan of care. Reevaluation #2: 11/29/20 00:23 Reassessed. Feels improved. Still wheezing. Playing on cellular phone. Additional therapies ordered. Reevaluation #3: 11/29/20 01:27 Feeling improved, but still wheezing. Repeat albuterol, Atrovent, subcutaneous epinephrine ordered. Patient is receiving the aforementioned therapies at this time. Care will be transferred to the overnight physician, to reassess patient after the aforementioned therapies. If wheezing is improved/resolved, would consider discharge. If patient still wheezing, or still feeling symptomatic, would consider admission for supportive care. - Pulse Oximetry Interpretation Digit-Finger Initial Pulse Oximetry Readin O2 Sat by Pulse Oximetry: 96 Actions Taken: none ED Medical Decision Making - Lab Data Vital Signs 11/28/20 18:57 Temperature 97.8 F Pulse Rate 96 H Respiratory 18 Rate Blood Pressure 113/86 O2 Sat by Pulse 98 Oximetry - Radiology Data Radiology results: report reviewed, image reviewed Print Report Referring Physician: MILADIS REN Patient Name: HILARIA BRANHAM Date of : 1975 Sex: Female Report Date: 2020-11-28 Report Status: Finalized Findings [facility] [address] [place] [address] XRay Report Signed Patient: HILARIA BRANHAM MR#: [id number] : 1975 Acct:[id number] Age/Sex: 45 / F ADM Date: 11/28/20 Loc: ED Attending Dr: Ordering Physician: MILADIS REN Date of Service: 11/28/20 Procedure(s): XR chest routine 2V Accession Number(s): [id number] cc: MILADIS REN Fluoro Time In Minutes: CHEST 2 VIEWS INDICATION: MAIN. Acute shortness of breath since last evening, asthmatic COMPARISON: Chest x-ray from 10/08/2020 FINDINGS: SUPPORT DEVICES: None. HEART: Within normal limits. LUNGS/PLEURA: Mild bilateral central peribronchial thickening could be seen with history of asthma. No consolidation or effusion. No pneumothorax. ADDITIONAL FINDINGS: None. IMPRESSION: 1. Pulmonary findings as above. Signer Name: Sami Apple MD Signed: 11/28/2020 8:03 PM Workstation Name: [id number] Transcribed By: JW Dictated By: Sami Apple MD Electronically Authenticated By: Sami Apple MD Signed Date/Time: 11/28/202002 DD/ 02 TD/TT: Critical Care Time: Yes Critical care time in (mins) excluding proc time.: 35 ED Disposition Clinical Impression: Asthma exacerbation Qualifiers: Asthma severity: moderate Asthma persistence: unspecified Qualified Code(s): J45.901 - Unspecified asthma with (acute) exacerbation Disposition: DC-01 TO HOME OR SELFCARE Condition: Stable Instructions: Asthma, Adult Additional Instructions: Use the medications as needed and directed. Follow-up with a primary care doctor or ironworker within the next 5 to 7 days. Avoid consumption of tobacco, smoke products. Use the epinephrine pen for severe wheezing, inability to speak, inability to breathe. Please return to the emergency room right away with new pain, worsening pain, migration of pain, projectile vomiting, change in mental status, confusion, inability to tolerate liquid feeds, new, worsened or different symptoms not present on the initial emergency room evaluation. Prescriptions: Ipratropium (Nf) [Atrovent] 2 puff IH Q6HR PRN #1 inha PRN Reason: Wheezing predniSONE [Deltasone] 40 mg PO QDAY #8 tab EPINEPHrine [Epipen 2-Benji] 0.3 mg IM DAILY PRN #2 ml PRN Reason: Allergic Reaction Albuterol Sulfate [Proair Respiclick] 90 mcg IH Q4HR PRN #2 aer.pow.ba PRN Reason: Wheezing Referrals: JEANETTE GREER MD [Staff Physician] - 3-5 Days <AVE CHAVEZ - Last Filed: 11/29/20 03:47> ED Review of Systems ROS: Stated complaint: ASTHAM/SHORTNESS OF BREATH Other details as noted in HPI ED Course Vital Signs 11/28/20 11/28/20 11/29/20 18:57 22:27 01:22 Temperature 97.8 F Pulse Rate 96 H Pulse Rate [ 110 H 96 H Bilateral] Respiratory 18 Rate Respiratory 28 H 28 H Rate [Bilateral ] Blood Pressure 113/86 O2 Sat by Pulse 98 Oximetry O2 Sat by Pulse Oximetry [ Digit-Finger] 11/29/20 01:30 Temperature Pulse Rate Pulse Rate [ Bilateral] Respiratory Rate Respiratory Rate [Bilateral ] Blood Pressure O2 Sat by Pulse Oximetry O2 Sat by Pulse 96 Oximetry [ Digit-Finger] - Reevaluation(s) Reevaluation #4: 11/29/20 03:46 Nebulizer treatment completed. Patient ambulated to and from bathroom without difficulty. She reports she is feeling much better now. Wheezing has resolved. Will discharge home at this time. Critical care attestation.: If time is entered above; I have spent that time in minutes in the direct care of this critically ill patient, excluding procedure time. ED Disposition Is pt being admited?: No Time of Disposition: 03:47
[2020-11-29] MEDS ORDERED: EPINEPHrine/PF 1 MG/1 ML INJ SUB-Q ONE (00:18)
[2020-11-29] MEDS ORDERED: IPRATROPIUM 0.02% NEBU 2.5 ML IH ONE (00:18)
[2020-11-29] MEDS ORDERED: ALBUTEROL 2.5 MG/3 ML NEBU IH ONE (00:18)
[2020-11-29 06:57] VITALS: BP 117/71
== END 2020-11-29 05:30 | disposition home or self-care (01) ==
LOC: ED 17:50
DX: J45.901 Unspecified asthma with (acute) exacerbation (principal); F32.9 Major depressive disorder, single episode, unspecified; F41.9 Anxiety disorder, unspecified; Z79.899 Other long term (current) drug therapy
CPT/HCPCS: 71046; 94640; 94644; 96365; 96372; 96375; 99284; J0171; J2930; J3475; J7040